=== PATIENT | female | born 1970 | race African-American/Black ===

== ENCOUNTER → 2017-09-08 | Outpatient (CLI) | payer OTHER ==
[2017-09-08 13:21] LABS: ABSOLUTE BASOPHILS # (AUTO) 0.1 10^3/uL (0.0-0.2); ABSOLUTE EOSINOPHILS # (AUTO) 0.1 10^3/uL (0.0-0.6); ABSOLUTE LYMPHOCYTES (AUTO) 3.6 10^3/uL (0.5-4.7); ABSOLUTE MONOCYTES (AUTO) 0.3 10^3/uL (0.1-1.4); BASOPHILS % (AUTO) 0.8 % (0-2); EOSINOPHILS % (AUTO) 2.2 % (0-6); HEMATOCRIT 42.4 % (36.0-47.0); HEMOGLOBIN 13.8 g/dL (12.0-15.5); LYMPHOCYTES % (AUTO) 58.7 % (13-45); MEAN CORPUSCULAR HEMOGLOBIN 26.9 pg (27.0-33.4); MEAN CORPUSCULAR HGB CONC 32.6 g/dL (32.0-36.0); MEAN CORPUSCULAR VOLUME 83 fl (80-97); MONOCYTES % (AUTO) 5.7 % (3-13); RED BLOOD COUNT 5.13 10^6/uL (3.72-5.28); RED CELL DISTRIBUTION WIDTH 13.4 % (11.5-14.0); SEGMENTED NEUTROPHILS % (AUTO) 32.6 % (42-78); WHITE BLOOD COUNT 6.1 10^3/uL (4.0-10.5)
[2017-09-08 13:36] LABS: ALANINE AMINOTRANSFERASE 46 U/L (9-52); ALBUMIN 4.4 g/dL (3.5-5.0); ALKALINE PHOSPHATASE 72 U/L (38-126); ANION GAP 14 (5-19); ASPARTATE AMINO TRANSFERASE 27 U/L (14-36); BILIRUBIN,DIRECT 0.2 mg/dL (0.0-0.4); BILIRUBIN,TOTAL 0.7 mg/dL (0.2-1.3); BLOOD UREA NITROGEN 11 mg/dL (7-20); CALCIUM 9.7 mg/dL (8.4-10.2); CARBON DIOXIDE 26 mmol/L (22-30); CHLORIDE 103 mmol/L (98-107); CHOLESTEROL 272.73 mg/dL (0-200); CREATININE RESULT 0.75 mg/dL (0.52-1.25); Direct HDL 60 mg/dL (>40); GLUCOSE 83 mg/dL (75-110); POTASSIUM 3.8 mmol/L (3.6-5.0); SODIUM 142.5 mmol/L (137-145); TOTAL PROTEIN 7.7 g/dL (6.3-8.2); TRIGLYCERIDES 192 mg/dL (<150)
[2017-09-08 13:47] LABS: DIRECT LDL 188 mg/dL (<100)
[2017-09-08 13:48] LABS: VLDL CHOLESTEROL 38.4 mg/dL (10-31)
== END ==
LOC: CCC 12:00
DX: I10 Essential (primary) hypertension (principal)
CPT/HCPCS: 36415; 80053; 80061; 83036; 84443; 85025

== ENCOUNTER → 2017-09-14 | Outpatient (CLI) | payer OTHER ==
--- NOTE | 2017-09-15 16:48 | WOMENS IMAGING REPORT ---
EXAM DESCRIPTION: BILAT SCREENING MAMMO W/CAD COMPLETED DATE/TIME: 09/15/2017 7:01 am REASON FOR STUDY: SCREENING MAMMO Z12.31 ENCNTR SCREEN MAMMOGRAM FOR MALIGNANT NEOPLASM OF [place] COMPARISON: MULTIPLE SINCE 2011 TECHNIQUE: Standard craniocaudal and mediolateral oblique views of each breast recorded using digita l acquisition. LIMITATIONS: None. FINDINGS: No masses, calcifications or architectural distortion. No areas of suspicion. Read with the assistance of CAD. .[facility] - R2 Cenova Version 1.3 .[facility] - R2 Cenova Version 1.[address] .[facility] - R2 Cenova Version 2.4 .[facility] - R2 Cenova Version 2.4 .[facility] - R2 Dust Mop Maker Version 9.2 IMPRESSION: NORMAL MAMMOGRAM. BIRADS 1. BREAST DENSITY: c. The breasts are heterogeneously dense, which may obscure small masses. BIRAD: 1 NEGATIVE RECOMMENDATION: ROUTINE SCREENING COMMENT: The patient has been notified of the results by letter per SA requirements. Additional no tification policies are in place for contacting patient with suspicious or incomplete findings. Quality ID #[id number]: The [employer] recommends an annual screening mammogram for women aged 40 years or over. This facility utilizes a reminder system to ensure that all patients receive reminder letters, and/or direct phone calls for appointments. This includes reminders for routine scr eening mammograms, diagnostic mammograms, or other Breast Imaging Interventions when appropriate. Th is patient will be placed in the appropriate reminder system. The [employer] (ACR) has developed recommendations for screening MRI of the breast s in certain patient populations, to be used in conjunction with mammography. Breast MRI surveillanc e may be appropriate for women with more than 20% lifetime risk of developing breast cancer as deter mined by genetic testing, significant family history of the disease, or history of mantle radiation f or Hodgkins Disease. ACR Practice Guidelines 2008. TECHNICAL DOCUMENTATION: FINDING NUMBER: (1) ASSESSMENT: (1) JOB ID: [id number] [employer]- All Rights Reserved
== END ==
LOC: WI 14:33
DX: Z12.31 Encounter for screening mammogram for malignant neoplasm of breast (principal)
CPT/HCPCS: 77067; G0202

== ENCOUNTER 2018-05-21 18:35 | Emergency (ER) | payer SELFPAY ==
[2018-05-21 19:27] VITALS: BP 150/83
[2018-05-21] MEDS ORDERED: ERYTHROMYCIN 0.5% OPH OINT 1 GM UNIT DOSE OD ONE (19:46)
--- NOTE | 2018-05-21 19:48 | ER Document Report ---
HPI - HPI Patient complains to provider of: right eye pain, right ear pain Pain Level: 4 Context: Patient is a 47-year-old female that comes to the emergency department for complaints of right eye pain with swollen and tender lower eyelid and also right ear pain for the past several days. She denies fever or chills, nausea or vomiting, severe headache. She states a little earlier her vision felt blurry but not now, denies any loss of vision, denies any discharge. She denies injury or foreign body sensation. She does not wear any visual correction. Only past medical history reported is hypertension. - REPRODUCTIVE Reproductive: DENIES: : Past Medical History - General Information source: Patient - Social History Smoking Status: Never Smoker Frequency of alcohol use: None Drug Abuse: None Lives with: Family Family History: CVA, DM, Hypertension, Thyroid Disfunction - Past Medical History Cardiac Medical History: Reports: Hx Hypertension Pulmonary Medical History: Reports: Hx Asthma Traumatic Medical History: Reports: Hx Fractures - Immunizations Hx Diphtheria, Pertussis, Tetanus Vaccination: Yes Vertical Provider Document - CONSTITUTIONAL General Appearance: WD/WN, No Apparent Distress - INFECTION CONTROL TRAVEL OUTSIDE OF THE [place] IN LAST 30 DAYS: No - HEENT HEENT: Atraumatic, Conjuctival Injection. negative: Normal ENT Exam - There is slight swelling over the right lower eyelid which is in 1 specific lateral area and is palpable without severe tenderness, no significant erythema of the eyelid or upper part of the face, normal EOMS. Normal examination of the cornea with no dye uptake, negative Ryland sign, no embedded foreign bodies. No discharge. Left tympanic membrane normal, right tympanic membrane with erythema , loss of landmarks, effusion, nearby tender lymph nodes, normal mastoid, normal tragus, normal canal. - NECK Neck: Normal Inspection - RESPIRATORY Respiratory: Breath Sounds Normal, No Respiratory Distress - CARDIOVASCULAR Cardiovascular: Regular Rate, Regular Rhythm - GI/ABDOMEN Gastrointestinal: Abdomen Soft, Abdomen Non-Tender - BACK Back: Normal Inspection - MUSCULOSKELETAL/EXTREMETIES Musculoskeletal/Extremeties: MAEW, FROM, Non-Tender - NEURO Level of Consciousness: Awake, Alert, Appropriate Motor/Sensory: No Motor Deficit, No Sensory Deficit - DERM Integumentary: Warm, Dry, No Rash - There is a circular elevated area, nontender , no drainage, this is located over the left lateral forehead just above the eyebrow. Unremarkable skin examination otherwise. Course - Re-evaluation Re-evalutation: Examination consistent with a stye, no signs of distress, no concerning findings otherwise, unremarkable visual acuity. No nearby cellulitis noted. Examination does also show right otitis media. Patient also is asking about a cyst on her left upper face, explained this, appears to be a sebaceous cyst without infection, after discussion patient requests dermatology referral, this was placed. Patient given erythromycin ointment to go home with, discussed application, medications, follow-up, and return precautions in detail. Patient states understanding and agreement. - Vital Signs Vital signs: Temp Pulse Resp BP Pulse Ox 98.6 F 91 20 150/83 H 100 05/21/18 19:03 05/21/18 19:03 05/21/18 19:03 05/21/18 19:03 05/21/18 19:03 Discharge - Discharge Clinical Impression: Pain, eye, right, Right ear pain Condition: Stable Disposition: HOME, SELF-CARE Additional Instructions: Your examination is consistent with a stye on your right lower eyelid, use erythromycin ointment as prescribed (Instill ~1 cm ribbon into affected eye 4x daily). This should resolve with time. If this does not resolve please follow- up with the ophthalmology referral (Dr. Santos). Return if this worsens including discolored discharge, loss of vision, swelling, fever, or any other concerning symptoms. Your examination also shows an ear infection of your middle ear on the right side, take amoxicillin as prescribed to completion. The Flonase should help resolve this as well. Take ibuprofen or Tylenol for pain. For the cyst on your left upper face/forehead area, consider follow-up with dermatology (Dr. Sierra). Prescriptions: Amoxicillin Trihydrate [Amoxil 875 mg Tablet] 1 tab PO BID #20 tablet Fluticasone Propionate [Flonase Nasal [place] 50 Mcg/[place] 16 gm] 1 spray NASL Q12 #1 inhaler Forms: Return to Work, Elevated Blood Pressure Referrals: ANDREA SIERRA DO [ACTIVE STAFF] - Follow up as needed ROBERT SANTOS MD [ACTIVE STAFF] - Follow up as needed
== END 2018-05-21 20:03 | disposition home or self-care (01) ==
LOC: ER 18:35
DX: H57.11 Ocular pain, right eye (principal); H92.01 Otalgia, right ear; I10 Essential (primary) hypertension
CPT/HCPCS: 99283

== ENCOUNTER 2018-07-09 19:02 | Emergency (ER) | payer SELFPAY ==
[2018-07-09] MEDS ORDERED: MUPIROCIN 2% OINTMENT 22 GM TP ONE (19:53)
--- NOTE | 2018-07-09 19:57 | ER Document Report ---
HPI - HPI Patient complains to provider of: Left face cyst pain Onset: Yesterday - Yesterday Onset/Duration: Gradual, Intermittent Pain Level: 5 Context: 47-year-old female states she has had a cyst on the left side of her face for 1 year. It hurts intermittently and it started yesterday. She states 800 mg of Motrin did not relieve the pain. The cyst is not gotten any larger or redder. [facility] There is no headache dizziness eye pain or pressure visual changes. She was seen for a migraine back in 2012 during chart review. Associated Symptoms: None Exacerbated by: Other - Touching the area Relieved by: Denies Similar symptoms previously: Yes Recently seen / treated by doctor: No - ROS ROS below otherwise negative: Yes Systems Reviewed and Negative: Yes All other systems reviewed and negative - REPRODUCTIVE Reproductive: DENIES: : Past Medical History - General Information source: Patient - Social History Smoking Status: Unknown if Ever Smoked Lives with: Family - With her son Family History: CVA, DM, Hypertension, Thyroid Disfunction - Past Medical History Cardiac Medical History: Reports: Hx Hypertension Pulmonary Medical History: Reports: Hx Asthma Renal/ Medical History: Denies: Hx Peritoneal Dialysis Traumatic Medical History: Reports: Hx Fractures Surgical Hx: Negative - Immunizations Hx Diphtheria, Pertussis, Tetanus Vaccination: Yes Vertical Provider Document - CONSTITUTIONAL Agree With Documented VS: Yes Exam Limitations: No Limitations General Appearance: Mild Distress - INFECTION CONTROL TRAVEL OUTSIDE OF THE [place] IN LAST 30 DAYS: No - HEENT HEENT: Normocephalic Notes: PERRL, eom's intact. 1 cm sebaceous cyst, closed comedone, not red, not hot. - NECK Neck: Supple. negative: Lymphadenopathy-Left, Lymphadenopathy-Right - NEURO Level of Consciousness: Awake Course - Vital Signs Vital signs: Temp Pulse Resp BP Pulse Ox 98.8 F 95 16 132/78 H 97 07/09/18 19:05 07/09/18 19:05 07/09/18 19:05 07/09/18 19:05 07/09/18 19:05 Discharge - Discharge Clinical Impression: left lateral superior orbit cyst Condition: Good Disposition: HOME, SELF-CARE Instructions: Acetaminophen, Bactroban Ointment ([facility]), Use of Brph-Juw-Ocglbtd Ibuprofen ([facility]), Warm Packs ([facility]) Additional Instructions: You were seen in the emergency today for a sebaceous cyst (oil gland) Warm compress Bactroban small amount for 3 times a day for 5 days Call and schedule an appointment with the mutual fund manager for removal Referrals: GLEN YAP MD [ACTIVE STAFF] - Follow up as needed ANDREA SIERRA DO [ACTIVE STAFF] - 07/11/18 (call for appointment for removal)
[2018-07-09 20:08] VITALS: BP 128/77
== END 2018-07-09 20:10 | disposition home or self-care (01) ==
LOC: ER 19:02
DX: H05.812 Cyst of left orbit (principal); R51 Headache; I10 Essential (primary) hypertension
CPT/HCPCS: 99283; J3490

== ENCOUNTER 2018-10-05 03:52 | Emergency (ER) | payer OTHER ==
--- NOTE | 2018-10-05 04:19 | ER Document Report ---
HPI - HPI Patient complains to provider of: ear pain, congestion, sore throat Time Seen by Provider: 10/05/18 04:04 Pain Level: 5 Context: Patient is a 48-year-old female that 5 days of worsening symptoms of congestion, ear pain (worse on the left), and sore throat. She denies fever, cough, difficulty breathing, headache. Patient denies any obvious sick contacts. She does not smoke. She denies any daily medications. Past medical history of hypertension. - REPRODUCTIVE Reproductive: DENIES: : Past Medical History - General Information source: Patient - Social History Smoking Status: Never Smoker Frequency of alcohol use: None Drug Abuse: None Lives with: Family Family History: CVA, DM, Hypertension, Thyroid Disfunction - Past Medical History Cardiac Medical History: Reports: Hx Hypertension Pulmonary Medical History: Reports: Hx Asthma Renal/ Medical History: Denies: Hx Peritoneal Dialysis Traumatic Medical History: Reports: Hx Fractures - Immunizations Hx Diphtheria, Pertussis, Tetanus Vaccination: Yes Vertical Provider Document - CONSTITUTIONAL General Appearance: WD/WN, No Apparent Distress - INFECTION CONTROL TRAVEL OUTSIDE OF THE [place] IN LAST 30 DAYS: No - HEENT HEENT: Atraumatic, Normocephalic. negative: Normal ENT Exam - Sinus congestion with mild posterior pharynx erythema, no tonsillitis or swelling of the posterior pharynx, unremarkable oropharyngeal exam otherwise. Right ear is unremarkable. Left ear with dull, erythematous tympanic membrane. No perfo ration. Normal mastoids. Unremarkable ENT exam otherwise. - NECK Neck: Other - Mild bilateral anterior cervical adenopathy - RESPIRATORY Respiratory: Breath Sounds Normal, No Respiratory Distress - CARDIOVASCULAR Cardiovascular: Regular Rate, Regular Rhythm - GI/ABDOMEN Gastrointestinal: Abdomen Soft, Abdomen Non-Tender - MUSCULOSKELETAL/EXTREMETIES Musculoskeletal/Extremeties: MAEW, FROM, Non-Tender - NEURO Level of Consciousness: Awake, Alert, Appropriate - DERM Integumentary: Warm, Dry, No Rash Course - Re-evaluation Re-evalutation: Patient is extremely youthful and well-appearing. She is mildly hypertensive today. This will be returning rechecked by primary care. Examination shows otitis media on the left, sinus congestion, unremarkable oral pharyngeal exam. Discussed with patient. After discussion decision was made to proceed with treatment of her ear/sinuses because of her worsening symptoms and examination, discussed primary care follow-up, discussed return precautions. Patient states understanding and agreement. - Vital Signs Vital signs: Temp Pulse Resp BP Pulse Ox 98.5 F 79 16 152/80 H 98 10/05/18 03:55 10/05/18 03:55 10/05/18 03:55 10/05/18 03:55 10/05/18 03:55 Discharge - Discharge Clinical Impression: Sinus congestion Otitis media Qualifiers: Otitis media type: suppurative Chronicity: acute Laterality: left Recurrence: not specified as recurrent Spontaneous tympanic membrane rupture: without spontaneous rupture Qualified Code(s): H66.002 - Acute suppurative otitis media without spontaneous rupture of ear drum, left ear Pharyngitis Qualifiers: Pharyngitis/tonsillitis etiology: unspecified etiology Qualified Code(s): J02.9 - Acute pharyngitis, unspecified Condition: Stable Disposition: HOME, SELF-CARE Additional Instructions: Your evaluation is consistent with a viral upper respiratory infection and a secondary ear infection on the left side. The viral symptoms will resolve with time. Take the antibiotics as prescribed for the ear infection, take ibuprofen for pain, take diphenhydramine 25 mg at night to help you sleep and to reduce postnasal drainage and sore throat. Take the Flonase nasal spray to reduce ear symptoms. Follow-up with primary care. Return if you worsen including difficulty breathing, severe headache, vomiting, fever/chills, or any other concerning symptoms. Prescriptions: Diphenhydramine HCl 25 mg PO QHS PRN #30 tablet PRN Reason: Ibuprofen [Motrin 600 mg Tablet] 600 mg PO Q6HP PRN #24 tablet PRN Reason: Amoxicillin Trihydrate [Amoxil 500 mg Capsule] 1,000 mg PO TID 7 Days #42 ca psule Fluticasone Propionate [Flonase Nasal [place] 50 Mcg/[place] 16 gm] 2 sprays NASL Q12 #1 inhaler Forms: Elevated Blood Pressure
[2018-10-05] MEDS ORDERED: AMOXICILLIN TRIHYDRATE 500 MG CAPSULE PO ONE (04:36)
[2018-10-05] MEDS ORDERED: IBUPROFEN 600 MG TABLET PO ONE (04:36)
[2018-10-05 04:48] VITALS: BP 145/82
== END 2018-10-05 04:50 | disposition home or self-care (01) ==
LOC: ER 03:52
DX: H66.002 Acute suppurative otitis media without spontaneous rupture of ear drum, left ear (principal); J02.9 Acute pharyngitis, unspecified; R09.81 Nasal congestion; H92.01 Otalgia, right ear; R59.0 Localized enlarged lymph nodes; I10 Essential (primary) hypertension; J45.909 Unspecified asthma, uncomplicated
CPT/HCPCS: 99282

== ENCOUNTER 2018-12-11 20:17 | Emergency (ER) | payer OTHER ==
[2018-12-11 20:23] VITALS: BP 166/82
[2018-12-11] MEDS ORDERED: ACETAMINOPHEN 325 MG TABLET PO ONE (22:36)
[2018-12-11] MEDS ORDERED: IBUPROFEN 600 MG TABLET PO ONE (22:36)
--- NOTE | 2018-12-11 23:01 | ER Document Report ---
HPI - HPI Time Seen by Provider: 12/11/18 22:19 Pain Level: 4 Context: Patient is a 48-year-old female who presents to the emergency department with a chief complaint of a sore throat. Her symptoms started Wednesday. She also complains of a headache. She states that her left side of her neck is also sore. She had a fever on Wednesday, but denies fever today. She takes high blood pressure medications and her blood pressure is 166/82 here in the emergency department. She states that she just got a refill of her medications by her primary care doctor. - CONSTITUTIONAL Constitutional: REPORTS: Fever, Chills - EENT EENT: REPORTS: Sore Throat, Ear Pain - NEURO Neurology: REPORTS: Headache - CARDIOVASCULAR Cardiovascular: DENIES: Chest pain - RESPIRATORY Respiratory: DENIES: Trouble Breathing, Coughing - GASTROINTESTINAL Gastrointestinal: DENIES: Abdominal Pain, Nausea, Patient vomiting, Diarrhea - REPRODUCTIVE Reproductive: DENIES: : - MUSCULOSKELETAL Musculoskeletal: DENIES: Extremity pain - DERM Skin Color: Normal Skin Problems: None Past Medical History - Social History Smoking Status: Never Smoker Drug Abuse: None Family History: CVA, DM, Hypertension, Thyroid Disfunction Patient has suicidal ideation: No Patient has homicidal ideation: No - Past Medical History Cardiac Medical History: Reports: Hx Hypertension Pulmonary Medical History: Reports: Hx Asthma Renal/ Medical History: Denies: Hx Peritoneal Dialysis Traumatic Medical History: Reports: Hx Fractures - Immunizations Hx Diphtheria, Pertussis, Tetanus Vaccination: Yes Vertical Provider Document - CONSTITUTIONAL Agree With Documented VS: Yes Exam Limitations: No Limitations General Appearance: No Apparent Distress - INFECTION CONTROL TRAVEL OUTSIDE OF THE [place] IN LAST 30 DAYS: No - HEENT HEENT: Atraumatic, Normocephalic, PERRLA, Pharyngeal Tenderness, Pharyngeal Erythema, Tympanic Membrane Red - Left, Tympanic Membrane Bulging - Left. negative: Pharyngeal Exudate - NECK Neck: Normal Inspection, Lymphadenopathy-Left - RESPIRATORY Respiratory: Breath Sounds Normal, No Respiratory Distress - CARDIOVASCULAR Cardiovascular: Regular Rate, Regular Rhythm Pulses: Normal: Radial - MUSCULOSKELETAL/EXTREMETIES Musculoskeletal/Extremeties: FROM - NEURO Level of Consciousness: Awake, Alert, Appropriate Motor/Sensory: No Motor Deficit, No Sensory Deficit - DERM Integumentary: Warm, Dry Course - Re-evaluation Re-evalutation: 12/11/18 23:10 Patient's exam is most consistent with left acute otitis media. She will be sent home with amoxicillin. I do not suspect mastoiditis. She is in agreement with this plan. Verbal discharge instructions were given to the patient. They verbalized understanding. They are stable for discharge. - Vital Signs Vital signs: Temp Pulse Resp BP Pulse Ox 98.5 F 79 18 166/82 H 99 12/11/18 20:21 12/11/18 20:21 12/11/18 20:21 12/11/18 20:21 12/11/18 20:21 Discharge - Discharge Clinical Impression: Otitis media Qualifiers: Otitis media type: mucoid Chronicity: acute Laterality: left Qualified Code(s): H65.112 - Acute and subacute allergic otitis media (mucoid) (sanguinous) (serous), left ear Condition: Stable Disposition: HOME, SELF-CARE Additional Instructions: Otitis Media You have a middle ear infection (otitis media). This is usually a complication of a cold or sore throat. The middle ear cavity becomes filled with infection. Pressure and stretching of the ear drum cause pain. Antibiotics are required. A 10 day course is usually prescribed. A decongestant may be recommended if you have a "runny nose." You may need anesthetic drops or other pain medication. A follow-up exam may be recommended to make sure the infection has completely cleared. If the ear begins to drain, it means the ear drum has ruptured. This will usually heal spontaneously. However, it means you should keep the ear dry until re-examined by a doctor. Call the physician or return for examination at once if there is severe headache, stiff neck, confusion, increasing fever, or dizziness. You should improve significantly within two days. If you're not better, call the doctor. Prescriptions: Amoxicillin Trihydrate [Amoxil 875 mg Tablet] 1 tab PO BID #20 tablet
[2018-12-11] MEDS ORDERED: AMOXICILLIN TRIHYDRATE 500 MG CAPSULE PO ONE (23:15)
== END 2018-12-11 23:24 | disposition home or self-care (01) ==
LOC: ER 20:17
DX: H65.112 Acute and subacute allergic otitis media (mucoid) (sanguinous) (serous), left ear (principal); J02.9 Acute pharyngitis, unspecified; R51 Headache; I10 Essential (primary) hypertension
CPT/HCPCS: 87070; 87880; 99283

== ENCOUNTER → 2018-12-28 | Outpatient (CLI) | payer OTHER ==
[~2018-12-28] MED LIST: REGADENOSON INJ 0.4 MG/5 ML DISP.SYRIN IV ONE
--- NOTE | 2019-01-01 20:26 | DRAGON STRESS TEST REPORT ---
Intravenous Lexiscan Cardiolite stress test using single photon emmision computerized tomography. Date of procedure: 12/28/2018. Ordering Provider: [facility]. Patient's status: Out Patient Indication: Chest pain. Coronary risk factors: Age, hypertension, and dyslipidemia Resting EKG: Sinus Rhythm. Within Normal Limits. Stress EKG: No changes of ischemia. Patient had no chest pain or discomfort, and there were no arrhythmias seen. Reason for termination: Protocol. Conclusions: Normal EKG and hemodynamic response to IV Lexiscan. Nuclear data: At rest the patient was given 14.92 millicuries of technetium 99m sestamibi injected intravenously. As per protocol rest non gated SPECT images were obtained. Subsequently the patient was given intravenous Lexiscan at a dose of 0.4 mg in 5 mL intravenously, followed by flush with normal saline. Subsequently the stress dose of 45.1 millicuries of technetium 99m sestamibi was injected intravenously. As per protocol stress gated images were obtained. Nuclear interpretation: Review of images showed that all segments of the myocardium had normal perfusion at rest, and normal perfusion post stress with IV Lexiscan. All segments of the myocardium had normal motion, contraction, and thickening by gated study. T. I D. ratio was read as abnormal by the computer at 1.44. Visually this is not reliable, and visually the TID ratio is normal. There is no transient ischemic dilatation of the left ventricle. Computer read rest, and stress left ventricular ejection fraction were 80 %, and %, respectively. Conclusion: 1. There is no scintigraphic evidence of Lexiscan induced myocardial ischemia. 2. There is no scintigraphic evidence of myocardial infarction/scar. Recommendations: Aggressive risk factor modification, and treating the underlying co- morbidities. MTDD
== END ==
LOC: RAD 08:28
DX: R07.89 Other chest pain (principal); I10 Essential (primary) hypertension; E78.5 Hyperlipidemia, unspecified
CPT/HCPCS: 93017; 78452; A9500; J2785; Q9969

== ENCOUNTER → 2019-07-26 | Outpatient (CLI) | payer OTHER ==
[2019-07-26 13:00] LABS: ANION GAP 9 (5-19); BLOOD UREA NITROGEN 10 mg/dL (7-20); CALCIUM 10.1 mg/dL (8.4-10.2); CARBON DIOXIDE 28 mmol/L (22-30); CHLORIDE 103 mmol/L (98-107); CHOLESTEROL 294.82 mg/dL (0-200); GLUCOSE 86 mg/dL (75-110); POTASSIUM 4.3 mmol/L (3.6-5.0); TRIGLYCERIDES 222 mg/dL (<150)
[2019-07-26 13:16] LABS: DIRECT LDL 185 mg/dL (<100)
[2019-07-26 13:21] LABS: VLDL CHOLESTEROL 44.4 mg/dL (10-31)
== END ==
LOC: CCC 11:59
DX: I10 Essential (primary) hypertension (principal)
CPT/HCPCS: 36415; 80048; 80061

== ENCOUNTER → 2019-08-17 | Outpatient (CLI) | payer OTHER ==
--- NOTE | 2019-08-18 07:57 | WOMENS IMAGING REPORT ---
EXAM DESCRIPTION: PINK WARRIOR BILATERAL SCREEN COMPLETED DATE/TIME: 08/17/2019 9:00 am REASON FOR STUDY: PINK PINK PINK Z12.31 SCREENING MAMMO PINK PINK PINK Z12.31 ENCNTR SCREEN MAMMOGR AM FOR MALIGNANT NEOPLASM OF [place] COMPARISON: Multiple since 2011 EXAM PARAMETERS: Standard craniocaudal and mediolateral oblique views of each breast recorded using digital acquisition. Read with the assistance of CAD. .[facility] - Staff [employer]er [employer] Version 9.2 LIMITATIONS: None. FINDINGS: No suspicious masses, suspicious calcifications or architectural distortion. No areas of c oncern. IMPRESSION: Negative MAMMOGRAM. BIRADS 1 BREAST DENSITY: c. The breasts are heterogeneously dense, which may obscure small masses. BIRAD: ASSESSMENT: 1 NEGATIVE RECOMMENDATION: ROUTINE SCREENING Please continue yearly bilateral screening mammography/tomosynthesis in July 2020 COMMENT: The patient has been notified of the results by letter per MQSA requirements. Additional no tification policies are in place for contacting patient with suspicious or incomplete findings. Quality ID #[id number]: The [employer] recommends an annual screening mammogram for women aged 40 years or over. This facility utilizes a reminder system to ensure that all patients receive reminder letters, and/or direct phone calls for appointments. This includes reminders for routine scr eening mammograms, diagnostic mammograms, or other Breast Imaging Interventions when appropriate. Th is patient will be placed in the appropriate reminder system. TECHNICAL DOCUMENTATION: FINDING NUMBER: (1) ASSESSMENT: (1) JOB ID: [id number] [employer]- All Rights Reserved Reading location - IP/workstation name: [email or web address]
== END ==
LOC: WI 08:30
PROVIDERS: ATTEND Midwife
DX: Z12.31 Encounter for screening mammogram for malignant neoplasm of breast (principal)
CPT/HCPCS: 77067